=== PATIENT | male | born 1930 | race Caucasian/White ===

== ENCOUNTER 2017-01-10 11:00 | Outpatient (RCR) ==
[2014-01-03 12:54] VITALS: BMI 43.3
--- NOTE | 2016-12-15 15:34 | RS.OPPTDN ---
Subjective Date of Note: 12/15/16 Visit #: 2 Date of Evaluation: 12/13/16 Payer Source: MEDICARE Treatment Diagnosis: OA, abnormality of gait, back pain Current Subjective/complaints:: pt states his neck hurt worse after therapy eval. pt states he was hurting alot this am but it is a little better now. *Precautions: fall risk Pain Assessment - Pain Description Pain Location: cervical spine, and lumbar spine(L lat lumbar) Pain Description: Aching Current Pain Intensity: 4/10 - Treatment Modality: Ultrasound Parameters/Method Applied: 1.5w/cm2 x 7 mins Treatment Area: cervical paraspinals Patient Position: Sitting - Heat/Cryotherapy Treatment: Hot Pack Comments:: cervical and lumbar area. Balance System Training - Balance Training Comments pt worked on balance master, pt unable to maintain balance without using BUE for support. May try balance master again at a later time. Interventions - Exercise/Activities/Manual Therapy Exercises/Activities: pt received gentle heel cord stretches, and hamstring stretches. pt performed BLE SAQ, hip abd x 2 sets of 10 reps, sitting performed ball squeezes 2 sets of 10 reps as well as forward lunges x 10 reps with assist of PT. pt also performed cervical rotation and flex/ext gently with gentle upper trap stretches, with BUE elbow flex and scapular retraction with red tband x 2 sets of 10 reps. Total minutes of Exercise: 35 mins Manual Therapy: n/a HOME EXERCISE PROGRAM: pt given written HEP including hamstring stretch, cervical ROM, lumbar ext, scapular retraction, shld shrugs, trunk rotation - Objective Findings Observations,measurements,etc.: pt amb with 1 episode of LOB using handrail in hallway to regain balance. Advised pt to use his cane to improve balance with amb. - Charges Total Direct Minutes: 50mins Total Treatment Time: 65 mins Procedures billed for this date of service:: ex 2, ultrasound and hot pack Assessment: pt continues with cervical pain worse than Lumbar pain, pt continues with decreased strength BLE as well as decreased balance. Patient Education: Home Exercise Program, Home Safety, Activity Modification, Education of Plan of Care Patient demonstrates compliance with HEP?: Yes Short Term Goals Goal #1: pt report pain <4/10 at rest cervical and lumbar area Goal to be met by: 01/03/17 Progress towards Goal:: Progressing Goal #2: pt with decreased hamstring tightness to have SLR at optimal length Goal to be met by: 01/03/17 Progress towards Goal:: Progressing Goal #3: pt with improved dyn stand balance as noted by tinetti Goal to be met by: 01/03/17 Progress towards Goal:: Progressing Goal #4: pt amb in dept with no loss of balance with AAD without veer off path Goal to be met by: 01/03/17 Progress towards Goal:: Progressing Fdc Goals Goal #1: pt rate pain <3/10 at rest cervical and lumbar Goal to be met by: 01/24/17 Progress towards goal: Progressing Goal #2: pt with improved strength BLE/UE to 4to4+/5 and independent with HEP Goal to be met by: 01/24/17 Progress towards goal: Progressing Goal #3: pt with improved dyn stand balance as noted by tinetti score Goal to be met by: 01/24/17 Progress towards goal: Progressing Goal #4: pt amb community distances w less pain w/o seated rest period independently Goal to be met by: 01/24/17 Plan PLAN OF CARE EXPIRES ON:: 01/24/17 ORDER # VISITS AND/OR THROUGH DATE: 01/24/17 PLAN: Continue Plan of Care
--- NOTE | 2016-12-17 14:52 | RS.OPPTDN ---
Subjective Date of Note: 12/17/16 Date of Evaluation: 12/13/16 Payer Source: MEDICARE Treatment Diagnosis: OA, abnormality of gait, back pain Current Subjective/complaints:: pt states he has been practicing his ex at home in the morning. *Precautions: fall risk Pain Assessment - Pain Description Pain Location: cervical spine, and lumbar spine(L lat lumbar) Pain Description: Aching Current Pain Intensity: 3/10 in the cervical spine, 1/10 in lumbar - Treatment Modality: Ultrasound Parameters/Method Applied: 1.6w/cm2 x 7 mins Treatment Area: L cervical spine Patient Position: Sitting - Heat/Cryotherapy Treatment: Hot Pack Comments:: cervical and lumbar spine Balance System Training - Balance Training Comments pt with improved gait, amb without LOB from lobby into dept without cane. Interventions - Exercise/Activities/Manual Therapy Exercises/Activities: pt received gentle heel cord stretches, and hamstring stretches after hot pack. pt performed BLE SAQ with 1# weights in hooklying, 2 sets of 10 reps, sitting hip abd with red tband and performed ball squeezes 2 sets of 10 reps. pt also performed gentle upper trap stretches, scapular retraction with blue tband x 2 sets of 10 reps. Total minutes of Exercise: 31 Manual Therapy: pt received manual cervical traction with head of table elevated. pt reports instant relief with manual traction. pt also received trigger point massage to L upper trap Total minutes of Manual Therapy: 12 HOME EXERCISE PROGRAM: pt given written HEP including hamstring stretch, cervical ROM, lumbar ext, scapular retraction, shld shrugs, trunk rotation - Charges Total Direct Minutes: 55 Total Treatment Time: 55 Procedures billed for this date of service:: ex 2, ultrasound, manual therapy Assessment: pt improving with lumbar pain as well as improved gait ability Patient Education: Home Exercise Program, Home Safety, Activity Modification, Education of Plan of Care Patient demonstrates compliance with HEP?: Yes Short Term Goals Goal #1: pt report pain <4/10 at rest cervical and lumbar area Goal to be met by: 01/03/17 Progress towards Goal:: Progressing Goal #2: pt with decreased hamstring tightness to have SLR at optimal length Goal to be met by: 01/03/17 Progress towards Goal:: Progressing Goal #3: pt with improved dyn stand balance as noted by ramirez Goal to be met by: 01/03/17 Progress towards Goal:: Progressing Goal #4: pt amb in dept with no loss of balance with AAD without veer off path Goal to be met by: 01/03/17 Progress towards Goal:: Progressing [facility] Goals Goal #1: pt rate pain <3/10 at rest cervical and lumbar Goal to be met by: 01/24/17 Progress towards goal: Progressing Goal #2: pt with improved strength BLE/UE to 4to4+/5 and independent with HEP Goal to be met by: 01/24/17 Progress towards goal: Progressing Goal #3: pt with improved dyn stand balance as noted by tinetti score 22/28 Goal to be met by: 01/24/17 Progress towards goal: Progressing Goal #4: pt amb community distances w less pain w/o seated rest period independently Goal to be met by: 01/24/17 Plan PLAN OF CARE EXPIRES ON:: 01/24/17 ORDER # VISITS AND/OR THROUGH DATE: 01/24/17 PLAN: Continue Plan of Care (try mechanical cervical traction next visit or continue manual traction)
--- NOTE | 2016-12-21 16:22 | RS.OPPTDN ---
Subjective Date of Note: 12/21/16 Visit #: 4 Date of Evaluation: 12/13/16 Payer Source: MEDICARE Treatment Diagnosis: OA, abnormality of gait, back pain Current Subjective/complaints:: Patient reports treatment is helping neck and upper back pain. Reports some back pain with walking longer distances. States he will work on basic HEP. *Precautions: fall risk Pain Assessment - Pain Description Pain Location: cervical spine, and lumbar spine(L lat lumbar) Pain Description: Aching Current Pain Intensity: 2-3/10 in the cervical spine, mild to mod in lumbar - Treatment Modality: Ultrasound Parameters/Method Applied: [id number] at 1.5w/cm2 to the bilateral upper traps prior to MT and EX. Patient Position: Supine - Heat/Cryotherapy Treatment: Hot Pack ([id number] to c-spine prior to US. Patient in sitting with head supported. ) Interventions - Exercise/Activities/Manual Therapy Exercises/Activities: Pt received gentle heel cord stretches and hamstring stretches. Performs SAQ, alt hip flexion, and isometric hip add. Isometric hip flexion 3s/5reps. In sitting, ankle pumps and began isometric cervical retraction. In standing at handrail, marching, toe-ups, and mini-squats. Total minutes of Exercise: 20mins Manual Therapy: Manual cervical traction with head of table elevated. Trigger point release at bilateral traps and gentle cervical lateral flexion stretching. Total minutes of Manual Therapy: 10mins HOME EXERCISE PROGRAM: pt given written HEP including hamstring stretch, cervical ROM, lumbar ext, scapular retraction, shld shrugs, trunk rotation - Charges Total Direct Minutes: 40mins Total Treatment Time: 60mins Procedures billed for this date of service:: HP, US, MT, EX Assessment: Patient responding well to initial treatment to cervical and upper trap regions, and he is very motivated to work on HEP. Patient Education: Education of diagnosis, Body/Joint mechanics, Home Exercise Program, Home Safety Patient demonstrates compliance with HEP?: Yes Short Term Goals Goal #1: pt report pain <4/10 at rest cervical and lumbar area Goal to be met by: 01/03/17 Progress towards Goal:: Progressing Goal #2: pt with decreased hamstring tightness to have SLR at optimal length Goal to be met by: 01/03/17 Progress towards Goal:: Progressing Goal #3: pt with improved dyn stand balance as noted by raimrez Goal to be met by: 01/03/17 Progress towards Goal:: Progressing Goal #4: pt amb in dept with no loss of balance with AAD without veer off path Goal to be met by: 01/03/17 Progress towards Goal:: Progressing [employer] Goals Goal #1: pt rate pain <3/10 at rest cervical and lumbar Goal to be met by: 01/24/17 Progress towards goal: Progressing Goal #2: pt with improved strength BLE/UE to 4to4+/5 and independent with HEP Goal to be met by: 01/24/17 Progress towards goal: Progressing Goal #3: pt with improved dyn stand balance as noted by tinetti score Goal to be met by: 01/24/17 Progress towards goal: Progressing Goal #4: pt amb community distances w less pain w/o seated rest period independently Goal to be met by: 01/24/17 Plan PLAN OF CARE EXPIRES ON:: 01/24/17 ORDER # VISITS AND/OR THROUGH DATE: 01/24/17 PLAN: Continue modalites and manual therapy to reduce pain, and progress exercise to increase patient balance and functional activity level.
--- NOTE | 2016-12-24 15:38 | RS.OPPTDN ---
Subjective Date of Note: 12/24/16 Visit #: 5 Date of Evaluation: 12/13/16 Payer Source: MEDICARE Treatment Diagnosis: OA, abnormality of gait, back pain Current Subjective/complaints:: Patient reports he noticed he could alternate steps when going up stairs at home. He reports he feels his LE's are getting stronger. He reports his noticed mid-back pain when at the grocery store, but he was able to complete shopping and check-out. *Precautions: fall risk Pain Assessment - Pain Description Pain Location: cervical spine, and lumbar spine(L lat lumbar) Pain Description: Aching Current Pain Intensity: 2-3/10 in the cervical spine, mild to mod in lumbar - Heat/Cryotherapy Treatment: Hot Pack ([id number] to lowback and c-spine prior to EX. Patient in sitting. ) Interventions - Exercise/Activities/Manual Therapy Exercises/Activities: Gentle heel cord, hamstring, and piriformis stretch. Performs SAQ, alt hip flexion, and isometric hip add. Isometric hip flexion 4s/ 5reps. SLR 2s/5reps each. Green theraband for hip adduction, 2s/10reps each. In sitting, green theraband for scapular retraction, 3s/10reps. In standing at handrail, marching, toe-ups, alt hip abduction, and mini-squats. Discussion of general safety with daily activities. Total minutes of Exercise: 38mins Manual Therapy: Trigger point release at bilateral traps and gentle cervical lateral flexion stretching. Total minutes of Manual Therapy: 5mins HOME EXERCISE PROGRAM: pt given written HEP including hamstring stretch, cervical ROM, lumbar ext, scapular retraction, shld shrugs, trunk rotation - Charges Total Direct Minutes: 43mins Total Treatment Time: 63mins Procedures billed for this date of service:: HP, EX3 Assessment: Patient reporting inporvement in LE strength and with ability to go up and down stairs at home. Patient Education: Home Exercise Program, Home Safety, Activity Modification Patient demonstrates compliance with HEP?: Yes Short Term Goals Goal #1: pt report pain <4/10 at rest cervical and lumbar area Goal to be met by: 01/03/17 Progress towards Goal:: Progressing Goal #2: pt with decreased hamstring tightness to have SLR at optimal length Goal to be met by: 01/03/17 Progress towards Goal:: Progressing Goal #3: pt with improved dyn stand balance as noted by tinetti Goal to be met by: 01/03/17 Progress towards Goal:: Progressing Goal #4: pt amb in dept with no loss of balance with AAD without veer off path Goal to be met by: 01/03/17 Progress towards Goal:: Progressing Halfway Goals Goal #1: pt rate pain <3/10 at rest cervical and lumbar Goal to be met by: 01/24/17 Progress towards goal: Progressing Goal #2: pt with improved strength BLE/UE to 4to4+/5 and independent with HEP Goal to be met by: 01/24/17 Progress towards goal: Progressing Goal #3: pt with improved dyn stand balance as noted by tinetti score Goal to be met by: 01/24/17 Progress towards goal: Progressing Goal #4: pt amb community distances w less pain w/o seated rest period independently Goal to be met by: 01/24/17 Progress towards goal: Progressing Plan PLAN OF CARE EXPIRES ON:: 01/24/17 ORDER # VISITS AND/OR THROUGH DATE: 01/24/17 PLAN: Continue progression of strengthening exercises and increase balance work to increase patient functional activity level.
--- NOTE | 2016-12-28 16:28 | RS.OPPTDN ---
Subjective Date of Note: 12/28/16 Visit #: 6 Date of Evaluation: 12/13/16 Payer Source: MEDICARE Treatment Diagnosis: OA, abnormality of gait, back pain Current Subjective/complaints:: Patient reports treatment has helped reduce his pain today. Also reports he is walking better in his home with daily activities. *Precautions: fall risk Pain Assessment - Pain Description Pain Location: cervical spine, and lumbar spine(L lat lumbar) Pain Description: Aching Current Pain Intensity: 4/10 in the trap trigger points, mild to mod in lumbar - Treatment Modality: Ultrasound Parameters/Method Applied: [id number] at 1.5w/cm2 to the bilateral trap trigger points. Patient Position: Sitting - Heat/Cryotherapy Treatment: Hot Pack ([id number] to the c-spine and lowback prior to US and EX. Patient in sitting. ) Interventions - Exercise/Activities/Manual Therapy Exercises/Activities: Gentle heel cord, hamstring, and piriformis stretch. Performs SAQ, alt hip flexion, and isometric hip add. Isometric hip flexion and SLR. In sitting, green theraband for scapular retraction. In standing at handrail, marching, toe-ups, alt hip abduction, and mini-squats. Boaz walking. Safety instruction with sit to stand. Total minutes of Exercise: 25mins Manual Therapy: Trigger point release at bilateral traps and gentle cervical lateral flexion stretching. Total minutes of Manual Therapy: 3mins HOME EXERCISE PROGRAM: pt given written HEP including hamstring stretch, cervical ROM, lumbar ext, scapular retraction, shld shrugs, trunk rotation - Charges Total Direct Minutes: 38mins Total Treatment Time: 58mins Procedures billed for this date of service:: HP, US, EX2 Assessment: Patient continues to have difficulty with neck and upper trap pain. He is responding to exercise with reports of improvement with functional activity level at home. Patient Education: Home Exercise Program, Home Safety, Activity Modification Patient demonstrates compliance with HEP?: Yes Short Term Goals Goal #1: pt report pain <4/10 at rest cervical and lumbar area Goal to be met by: 01/03/17 Progress towards Goal:: Progressing Goal #2: pt with decreased hamstring tightness to have SLR at optimal length Goal to be met by: 01/03/17 Progress towards Goal:: Progressing Goal #3: pt with improved dyn stand balance as noted by ramirez Goal to be met by: 01/03/17 Progress towards Goal:: Progressing Goal #4: pt amb in dept with no loss of balance with AAD without veer off path Goal to be met by: 01/03/17 Progress towards Goal:: Progressing [facility] Goals Goal #1: pt rate pain <3/10 at rest cervical and lumbar Goal to be met by: 01/24/17 Progress towards goal: Progressing Goal #2: pt with improved strength BLE/UE to 4to4+/5 and independent with HEP Goal to be met by: 01/24/17 Progress towards goal: Progressing Goal #3: pt with improved dyn stand balance as noted by tinetti score Goal to be met by: 01/24/17 Progress towards goal: Progressing Goal #4: pt amb community distances w less pain w/o seated rest period independently Goal to be met by: 01/24/17 Progress towards goal: Progressing Plan PLAN OF CARE EXPIRES ON:: 01/24/17 ORDER # VISITS AND/OR THROUGH DATE: 01/24/17 PLAN: Continue modalities as indicated while progressing postural and LE strengthening to increase patients safety and functional activity level.
--- NOTE | 2016-12-31 15:43 | RS.OPPTDN ---
Subjective Date of Note: 12/31/16 Visit #: 7 Date of Evaluation: 12/13/16 Payer Source: MEDICARE Treatment Diagnosis: OA, abnormality of gait, back pain Current Subjective/complaints:: Patient reports improvement in ability to walk in his home and short distances in the community without AD. Reports neck and upper trap muscle tension has bothered him and his has done a lot of sitting today. *Precautions: fall risk Pain Assessment - Pain Description Pain Location: neck and upper traps, lowback Current Pain Intensity: mild to mod in upper traps - Treatment Modality: Ultrasound Parameters/Method Applied: [id number] at 1.5w/cm2 to the bilateral upper traps and lower cervical paraspinals. Patient Position: Sitting - Heat/Cryotherapy Treatment: Hot Pack ([id number] to the c-spine and lowback prior to US and EX. Patient in sitting. ) Interventions - Exercise/Activities/Manual Therapy Exercises/Activities: In sitting, green theraband for scapular retraction. 4# to each ankle for LAQ and hip flexion. Isometric hip adduction with ball. In standing at handrail, marching, toe-ups, alt hip abduction, and mini-squats. Wand for bilateral shoulder flexion. Reviewed safety with sit to/from stand. Total minutes of Exercise: 20mins Manual Therapy: Trigger point release at bilateral traps and gentle cervical lateral flexion stretching. Patient given tennis ball and instructed in use for trigger point work at the upper traps in HEP. Total minutes of Manual Therapy: 10mins HOME EXERCISE PROGRAM: pt given written HEP including hamstring stretch, cervical ROM, lumbar ext, scapular retraction, shld shrugs, trunk rotation - Charges Total Direct Minutes: 42mins Total Treatment Time: 62mins Procedures billed for this date of service:: HP, US, MT, EX Assessment: Patient progressing with strengthening and balance activity and reporting improvment with functional mobility at home. Patient Education: Home Exercise Program, Home Safety, Activity Modification Patient demonstrates compliance with HEP?: Yes Short Term Goals Goal #1: pt report pain <4/10 at rest cervical and lumbar area Goal to be met by: 01/03/17 Progress towards Goal:: Progressing Goal #2: pt with decreased hamstring tightness to have SLR at optimal length Goal to be met by: 01/03/17 Progress towards Goal:: Progressing Goal #3: pt with improved dyn stand balance as noted by tinetti Goal to be met by: 01/03/17 Progress towards Goal:: Progressing Goal #4: pt amb in dept with no loss of balance with AAD without veer off path Goal to be met by: 01/03/17 Progress towards Goal:: Progressing Residential Goals Goal #1: pt rate pain <3/10 at rest cervical and lumbar Goal to be met by: 01/24/17 Progress towards goal: Progressing Goal #2: pt with improved strength BLE/UE to 4to4+/5 and independent with HEP Goal to be met by: 01/24/17 Progress towards goal: Progressing Goal #3: pt with improved dyn stand balance as noted by tinetti score Goal to be met by: 01/24/17 Progress towards goal: Progressing Goal #4: pt amb community distances w less pain w/o seated rest period independently Goal to be met by: 01/24/17 Progress towards goal: Progressing Plan PLAN OF CARE EXPIRES ON:: 01/24/17 ORDER # VISITS AND/OR THROUGH DATE: 01/24/17 PLAN: Continue modalities and exercise to reduce pain and increase functional activity level.
--- NOTE | 2017-01-04 16:01 | RS.OPPTDN ---
Subjective Date of Note: 01/04/17 Visit #: 8 Date of Evaluation: 12/13/16 Payer Source: MEDICARE Treatment Diagnosis: OA, abnormality of gait, back pain Current Subjective/complaints:: Patient reports last treatment with trigger point release and US helped reduce neck and upper trap pain. Reports he is consistently walking without cane now. *Precautions: fall risk Pain Assessment - Pain Description Pain Location: neck and upper traps - Treatment Modality: Ultrasound Parameters/Method Applied: [id number] at 1.5w/cm2 to the bilateral upper traps prior to MT. Patient Position: Sitting - Heat/Cryotherapy Treatment: Hot Pack ([id number] to the bilateral upper traps prior to US and MT. Patient in sitting. ) Interventions - Exercise/Activities/Manual Therapy Exercises/Activities: Leg press 45# 30reps at slow pace. In standing at handrail, marching, toe-ups, and mini-squats. Total minutes of Exercise: 12mins Manual Therapy: Trigger point release at bilateral traps and gentle cervical distraction. Assisted lateral flexion stretching. Patient has an active left upper trap trigger point which is reduced with 90 sec trigger point release. Total minutes of Manual Therapy: 14mins HOME EXERCISE PROGRAM: pt given written HEP including hamstring stretch, cervical ROM, lumbar ext, scapular retraction, shld shrugs, trunk rotation - Charges Total Direct Minutes: 38mins Total Treatment Time: 58mins Procedures billed for this date of service:: HP, US, MT, EX Assessment: Patient reporting good response to treatment including manual therapy to the upper traps, as well as consistently walking without cane. Patient Education: Body/Joint mechanics, Home Exercise Program Patient demonstrates compliance with HEP?: Yes Short Term Goals Goal #1: pt report pain <4/10 at rest cervical and lumbar area Goal to be met by: 01/03/17 Progress towards Goal:: Progressing Goal #2: pt with decreased hamstring tightness to have SLR at optimal length Goal to be met by: 01/03/17 Progress towards Goal:: Progressing Goal #3: pt with improved dyn stand balance as noted by ramirez Goal to be met by: 01/03/17 Progress towards Goal:: Progressing Goal #4: pt amb in dept with no loss of balance with AAD without veer off path Goal to be met by: 01/03/17 Progress towards Goal:: Met Die Turner Goals Goal #1: pt rate pain <3/10 at rest cervical and lumbar Goal to be met by: 01/24/17 Progress towards goal: Progressing Goal #2: pt with improved strength BLE/UE to 4to4+/5 and independent with HEP Goal to be met by: 01/24/17 Progress towards goal: Progressing Goal #3: pt with improved dyn stand balance as noted by tinetti score 22/28 Goal to be met by: 01/24/17 Progress towards goal: Progressing Goal #4: pt amb community distances w less pain w/o seated rest period independently Goal to be met by: 01/24/17 Progress towards goal: Met Plan PLAN OF CARE EXPIRES ON:: 01/24/17 ORDER # VISITS AND/OR THROUGH DATE: 01/24/17 PLAN: Continue modalities, manual therapy, and exercise to reduce pain and increase functional activitity level and safety.
--- NOTE | 2017-01-07 12:07 | RS.OPPTDN ---
Subjective Date of Note: 01/07/17 Visit #: 9 Date of Evaluation: 12/13/16 Payer Source: MEDICARE Treatment Diagnosis: OA, abnormality of gait, back pain Current Subjective/complaints:: Patient pleased with his progress,feels the therapy is helping him.He has leg muscle soreness from leg press last session , but minimal. *Precautions: fall risk Pain Assessment - Pain Description Current Pain Intensity: not rated Other Comments regarding Pain:: intermittent and minimal when present - Treatment Modality: Ultrasound Parameters/Method Applied: 10 mins. @ 1.5 w cm 2,continuous mode to bilateral upper traps. Patient Position: Sitting - Heat/Cryotherapy Treatment: Hot Pack (20 mins. to cervical/UT's ) Interventions - Exercise/Activities/Manual Therapy Exercises/Activities: NA Total minutes of Exercise: 0 Manual Therapy: 30 mins.Trigger point release and deep tissue mobs. to bilateral UT's,with emphasis on the L side. Total minutes of Manual Therapy: 30 HOME EXERCISE PROGRAM: pt given written HEP including hamstring stretch, cervical ROM, lumbar ext, scapular retraction, shld shrugs, trunk rotation - Charges Total Direct Minutes: 40 Total Treatment Time: 60 Procedures billed for this date of service:: hp,US,manual therapy 2 Assessment: Patient progresing well,has steadier gait observed entering / exiting clinic today.He has very good erythmic response on the L upper trap trigger point area.He reports sleeping well ,no interuption due to pain. Patient Education: Body/Joint mechanics, Home Exercise Program Patient demonstrates compliance with HEP?: Yes Short Term Goals Goal #1: pt report pain <4/10 at rest cervical and lumbar area Goal to be met by: 01/03/17 Progress towards Goal:: Progressing Goal #2: pt with decreased hamstring tightness to have SLR at optimal length Goal to be met by: 01/03/17 (N/A today) Progress towards Goal:: Progressing Goal #3: pt with improved dyn stand balance as noted by ramirez Goal to be met by: 01/03/17 Progress towards Goal:: Progressing Goal #4: pt amb in dept with no loss of balance with AAD without veer off path Goal to be met by: 01/03/17 Progress towards Goal:: Met Shelter Goals Goal #1: pt rate pain <3/10 at rest cervical and lumbar Goal to be met by: 01/24/17 Progress towards goal: Progressing Goal #2: pt with improved strength BLE/UE to 4to4+/5 and independent with HEP Goal to be met by: 01/24/17 Progress towards goal: Progressing Goal #3: pt with improved dyn stand balance as noted by tinetti score 22/28 Goal to be met by: 01/24/17 Progress towards goal: Progressing Goal #4: pt amb community distances w less pain w/o seated rest period independently Goal to be met by: 01/24/17 Progress towards goal: Met Plan PLAN OF CARE EXPIRES ON:: 01/24/17 ORDER # VISITS AND/OR THROUGH DATE: 01/24/17 PLAN: Continue PT to dedrease neck pain ,increase LE strength for safer gait outside of his home.
--- NOTE | 2017-01-10 14:33 | RS.OPPTDN ---
Subjective Date of Note: 01/10/17 Visit #: 10 Date of Evaluation: 12/13/16 Payer Source: MEDICARE Treatment Diagnosis: OA, abnormality of gait, back pain Current Subjective/complaints:: Patient reports he has progressed well with therapy but is afraid of insurance payment if he continues. He states his upper back and neck are better and he is able to do light housework such as lift grocery bags and reaching to overhead shelves. He also reports using his leaf blower for a short period. He also reports going up and down basement steps and alternating steps. Staets he will continue basic HEP and hopes he will continue to see improvement. *Precautions: fall risk Pain Assessment - Pain Description Pain Location: neck, upper traps, and lowback Pain Description: Tightness, Aching Current Pain Intensity: mild to mod - Treatment Modality: Ultrasound Parameters/Method Applied: [id number] at 1.5w/cm2 to the bilateral traps. Patient Position: Sitting - Heat/Cryotherapy Treatment: Hot Pack ([id number] to the bilateral upper traps prior to US and MT. Patient in sitting. ) Interventions - Exercise/Activities/Manual Therapy Exercises/Activities: Assisted stretching into lateral flexion. Discussion of HEP, which patient will continue including theraband for postural strengthing. Total minutes of Exercise: 5mins Manual Therapy: 15 mins. Trigger point release and deep tissue mobs to bilateral upper traps. Total minutes of Manual Therapy: 15mins HOME EXERCISE PROGRAM: pt given written HEP including hamstring stretch, cervical ROM, lumbar ext, scapular retraction, shld shrugs, trunk rotation - Objective Findings Observations,measurements,etc.: Demos an increase in Tinetti to 23/28 which is a moderate fall risk category. (was 14/28 or high risk on Eval) - Charges Total Direct Minutes: 32mins Total Treatment Time: 52mins Procedures billed for this date of service:: HP, US, MT Assessment: Patient progressed well with treatment and met 5 of 8 goals. He was concerned about insurance coverage and decided to finish at this time. Patient will continue basic HEP with hope he will see continued improvement. Patient Education: Body/Joint mechanics, Home Exercise Program, Activity Modification, Education of Plan of Care Patient demonstrates compliance with HEP?: Yes Short Term Goals Goal #1: pt report pain <4/10 at rest cervical and lumbar area Goal to be met by: 01/03/17 Progress towards Goal:: Progressing Goal #2: pt with decreased hamstring tightness to have SLR at optimal length Goal to be met by: 01/03/17 (N/A today) Progress towards Goal:: Progressing Goal #3: pt with improved dyn stand balance as noted by tinetti Goal to be met by: 01/03/17 Progress towards Goal:: Met Goal #4: pt amb in dept with no loss of balance with AAD without veer off path Goal to be met by: 01/03/17 Progress towards Goal:: Met Dye J[employer] Operator Goals Goal #1: pt rate pain <3/10 at rest cervical and lumbar Goal to be met by: 01/24/17 Progress towards goal: Progressing Goal #2: pt with improved strength BLE/UE to 4to4+/5 and independent with HEP Goal to be met by: 01/24/17 Progress towards goal: Met Goal #3: pt with improved dyn stand balance as noted by tinetti score Goal to be met by: 01/24/17 Progress towards goal: Met Goal #4: pt amb community distances w less pain w/o seated rest period independently Goal to be met by: 01/24/17 Progress towards goal: Met Plan PLAN OF CARE EXPIRES ON:: 01/24/17 ORDER # VISITS AND/OR THROUGH DATE: 01/24/17 PLAN: Discharge with HEP.
--- NOTE | 2017-01-11 08:50 | RS.OPPTDC ---
Date of Discharge: 01/10/17 Date of Evaluation: 12/13/16 Number of Visits: 10 Treatment Diagnosis: OA, abnormality of gait, back pain Current Level of Function: pt amb with cane independently with no loss of balance. Current Complaints/Gains: pt reports he is much better and is able to alternate steps to basement, can carry groceries, reach top shelf with dishes, and was able to use leaf blower. Pain Assessment - Pain Description Pain Location: cervical spine Current Pain Intensity: 3-4/10 Functional Outcome Measure Tinetti: 23 (improved from ) - G Codes & Severity Modifier G Codes & Modifier: mobility goal CI. mobility dc CJ Source of G Code score: tinetti Observation - Observation Inspection: pt continues with trigger points and tightness in cervical spine as well as upper traps Posture: Forward Head, Rounded Shoulders, Increased Thoracic Kyphosis Gait - Gait Pattern Gait Comments: pt amb independently without AD with no veering off path. General Range of Motion: cervical spine limited due to muscle tightness, and pain Muscle Strength: BLE: strength grossly 4 to 4+/5 Interventions - Exercise/Activities/Manual Therapy Exercises/Activities: n/a Manual Therapy: n/a HOME EXERCISE PROGRAM: pt given written HEP including hamstring stretch, cervical ROM, lumbar ext, scapular retraction, shld shrugs, trunk rotation - Charges Total Direct Minutes: n/a Total Treatment Time: n/a Procedures billed for this date of service:: n/a Assessment Assessment: pt has had significant improvement in balance, strength, and gait with reports from pt of returning to some functional activities around the home. pt continues with cervical pain, however reports improvement Patient Education: Education of diagnosis, Home Exercise Program, Activity Modification, Education of Plan of Care Rehab Potential: Good Short Term Goals Goal #1: pt report pain <4/10 at rest cervical and lumbar area Goal to be met by: 01/03/17 Progress towards Goal:: Met Goal #2: pt with decreased hamstring tightness to have SLR at optimal length Goal to be met by: 01/03/17 (N/A today) Progress towards Goal:: Progressing Goal #3: pt with improved dyn stand balance as noted by tinetti Goal to be met by: 01/03/17 Progress towards Goal:: Met Goal #4: pt amb in dept with no loss of balance with AAD without veer off path Goal to be met by: 01/03/17 Progress towards Goal:: Met Supervisor [employer] Goals Goal #1: pt rate pain <3/10 at rest cervical and lumbar Goal to be met by: 01/24/17 Progress towards goal: Progressing Goal #2: pt with improved strength BLE/UE to 4to4+/5 and independent with HEP Goal to be met by: 01/24/17 Progress towards goal: Met Goal #3: pt with improved dyn stand balance as noted by tinetti score 22/28 Goal to be met by: 01/24/17 Progress towards goal: Met Goal #4: pt amb community distances w less pain w/o seated rest period independently Goal to be met by: 01/24/17 Progress towards goal: Met Plan Reason for Discharge:: No Further Skilled Therapy Indicated Comments: pt has met STG 1, 3, 4, and LTG 2, 3, 4. pt is progressing but continues with pain in cervical spine 3-4/10 and continues with hamstring tightness.
== END 2017-01-13 ==
PROVIDERS: ATTEND Family Medicine
DX: R26.9 Unspecified abnormalities of gait and mobility (principal); M54.9 Dorsalgia, unspecified; M15.9 Polyosteoarthritis, unspecified; M19.90 Unspecified osteoarthritis, unspecified site

== ENCOUNTER 2017-11-23 09:39 | Outpatient (CLI) | payer OTHER ==
[2014-01-03 12:54] VITALS: BMI 43.3
--- NOTE | 2017-11-24 12:57 | MRI ---
EXAM: Brain MRI with and without contrast. HISTORY: Ataxia. COMPARISON: None. TECHNIQUE: Multiplanar, multisequence MR images were acquired of the brain before and after administ ration of intravenous contrast. FINDINGS: The midline structures are central and the craniocervical junction is unremarkable. There is enlargement of the subarachnoid space anterior to the frontal lobes at the convexity. There is m ild to moderate enlargement of the lateral and third ventricles and mild and mild to moderate widenin g of the sulci compatible with mild diffuse cerebral volume loss. The brain parenchyma has no diffusion restriction to suggest acute hypoperfusion or infarction. Ther e a few small foci of faint bright B 1000 signal along the peripheral left parietal cortex without ab normal T2 or FLAIR signal that are considered artifactual. There is a thick band of periventricular T2 hyperintensity and small T2 hyperintensities are present in the supratentorial white matter and po ssibly right tammy. These are most numerous along the bodies of the lateral ventricle bilaterally and there is greater patchy T2 hyperintensity in the bifrontal periventricular white matter. 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 There is no abnormal dark gradient echo signal. After ad ministration of contrast, no enhancing lesions are identified. The corpus callosum is normal. The p ituitary gland is normal in size and has homogeneous contrast enhancement. The infundibulum is midli ne. There are no intraorbital masses. There has been previous lens surgery bilaterally. The frontal sin us is hypoplastic. Minor scattered mucosal thickening is present in the ethmoid air cells and along both maxillary antra. There is minor membrane thickening in the inferior and posterior left mastoid air cells. There is no abnormal contrast enhancement in the internal auditory canals or labyrinthine structures. Flow voids are present in the major intracranial arteries and dural venous sinuses. There is degenerative spondylosis at C2-3 which produces mild spinal stenosis. Motion limits detail. Upper cervical facet arthropathy is noted. IMPRESSION: 1. No intracranial mass, hemorrhage or acute cerebral infarct. 2. Mild to moderate diffuse cerebral volume loss which is greater centrally and less likely NPH supe rimposed on mild chronic atrophy. 3. Mild chronic ischemic small vessel disease.
== END 2017-11-23 09:40 | disposition home or self-care (01) ==
LOC: RAD 09:39
PROVIDERS: ATTEND Family Medicine
DX: R27.0 Ataxia, unspecified (principal)